=== PATIENT | male | born 1980 | race Caucasian/White ===

== ENCOUNTER 2022-10-30 08:24 | Outpatient (CLI) | payer BC, SELFPAY | END 2022-10-30 08:25 | disposition home or self-care (01) | PROVIDERS: PCP Family Medicine; Visit Provider Nurse Practitioner Family | DX: Z00.00 Encounter for general adult medical examination without abnormal findings (principal); E78.5 Hyperlipidemia, unspecified | CPT/HCPCS: 80053; 80061 ==

== ENCOUNTER 2023-09-04 14:19 | Outpatient (CLI) | payer BC, SELFPAY | END 2023-09-04 14:20 | disposition home or self-care (01) | LOC: LKVREF 14:20 | PROVIDERS: PCP Family Medicine; Visit Provider Family Medicine | DX: M79.672 Pain in left foot (principal) | CPT/HCPCS: 84550 ==

== ENCOUNTER 2024-05-10 10:50 | Outpatient (CLI) | payer BC, SELFPAY | END 2024-05-10 10:51 | disposition home or self-care (01) | PROVIDERS: PCP Family Medicine; Visit Provider Family Medicine | DX: Z01.818 Encounter for other preprocedural examination (principal) | CPT/HCPCS: 80048 ==

== ENCOUNTER 2024-05-17 07:32 | Day surgery (SDC) | payer BC, SELFPAY ==
[2024-05-17 07:42] VITALS: BMI 30.3
[2024-05-17 08:01] VITALS: BP 131/75; PULSE 51; RESP 18; TEMP 36.3; O2SAT 93
[2024-05-17] MEDS: SODIUM CHLORIDE 0.9 % (FLUSH) 10 ML SYRINGE IVF (08:01)
--- NOTE | 2024-05-17 08:09 | W.PM.H&PU ---
History & Physical Update History & Physical Update H&P Reviewed and patient assessed: No changes noted
--- NOTE | 2024-05-17 08:14 | P.GSOP_ITS ---
Operative Note Date of procedure: 05/17/24 Pre-op diagnosis: 1. Enlarging mid upper back mass. Post-op diagnosis: Same Type of Procedure: 1. Excision of mid upper back mass. Indications: 43-year-old male was seen in clinic with an enlarging upper back mass. This was initially noticed 2 years ago. This was thought to be a lipoma. However the mass has been increasing in size and patient noticed irritation of the mass. On clinical exam in the upper mid back slightly to the right of the midline spine there was a quarter-sized flat soft tissue mass that was soft to palpation but a mobile. This was firmly attached to the underlying tissues. On clinical exam it was suspicious to be lipoma. Given patient's clinical history, the enlarging nature of the mass, and its location, excision of this mass in the operating room was recommended. The procedure was discussed in detail. The risks associated procedure including infection, bleeding, and mass recurrence were all discussed with the patient, and he agreed to proceed. Procedure Description: After discussing the risks and benefits of the procedure, the patient signed informed consent.? The operative site was marked and the patient was brought to the operating room and placed on the operating table in the left lateral decubit us position.? Care was taken to pad the patient's pressure points.?? The patient was then sedated by anesthesia.?? The operative site was then prepped and draped in the usual sterile fashion.? A time-out was then performed. Local anesthetic was injected over the palpable mass. A vertical skin incision was made with a scalpel. Subcutaneous fat was divided with cautery down to the superficial fascia. The mass was palpated underneath the fascia. The fascia was then divided with cautery. Clotted blood vessels with thrombi were noted in this flattened mass. The rest of the mass had an appearance of lipoma except for multiple thrombosed blood vessels. The mass was circumferentially mobilized off the subcutaneous fat. It was overlying the fat and fascia over the transverse processes. It was tightly adherent to the underlying tissues and was shaved off with cautery. When the mass was free, it was sent to pathology. It was measured 3.5 x 3 cm. Hemostasis achieved with cautery. Subcutaneous fat and superficial fascia was reapproximated with interrupted 2-0 Vicryl sutures. The dermis was reapproximated with interrupted 3-0 Vicryl sutures. The skin was closed with a running 4-0 Monocryl stitch. Steri-Strips and sterile bulky pressure dressing were placed over the incision. All counts were correct at the end of the case. ? The patient was then woken and transported to the recovery area in stable condition. ? The patient tolerated the procedure well. Findings: Flat lipomatous appearing mass with thrombosed blood vessels. Anesthesia: MAC and local Surgeon: Yanet Watson MD Estimated blood loss (mL): 5 Additional Specimen Information: 1. Mid upper back mass. Condition: stable Disposition: same day
[2024-05-17] MEDS: 0.9 % SODIUM CHLORIDE 500 ML 500 ML 100 ML IV (08:24)
[2024-05-17] MEDS: CEFAZOLIN 2 GM INJ IVP (08:35)
[2024-05-17] MEDS: LIDOCAINE 1%-EPI 1:100,000 10 ML INFILTRATI (08:38)
[2024-05-17] MEDS: BUPIVACAINE 0.25% 30 ML 10 ML INJECTION (08:38)
[2024-05-17 09:38] VITALS: BP 91/65; PULSE 54; RESP 16; TEMP 36.1; O2SAT 93
--- NOTE | 2024-05-17 09:40 | W.ANESCHARGE ---
Anesthesia Charges Start Date/Time Anesthesia Start Date: 05/17/24 Anesthesia Start Time: 08:24 Stop Date/Time Anesthesia Stop Date: 05/17/24 Anesthesia Stop Time: 09:36
[2024-05-17 09:45] VITALS: BP 108/71; PULSE 64; RESP 16; O2SAT 93
[2024-05-17 10:00] VITALS: BP 118/79; PULSE 62; RESP 16; O2SAT 93
[2024-05-17 10:15] VITALS: BP 117/86; PULSE 50; RESP 16; O2SAT 93
--- NOTE | 2024-05-17 10:42 | SUR.OPER ---
PATIENT QUESTIONS ANSWERED SATISFACTORILY PREOPERATIVELY. PATIENT BROUGHT TO OR #1 PER CART. Patient positioned supine on OR #1 bed. The perioperative team supported arms bilaterally on arm boards. Final approval of positioning by surgeon.
== END 2024-05-17 10:45 | disposition home or self-care (01) ==
PROVIDERS: PCP Family Medicine; Visit Provider Surgery
PROC: (CPT 21931; principal; 2024-05-17 09:00)
DX: D18.01 Hemangioma of skin and subcutaneous tissue (principal)
CPT/HCPCS: 21931; 00300; 88307; J0665; J0690; J1100; J1885; J2250; J2405; J2704; J3010; J7030

== ENCOUNTER 2024-10-17 10:32 | Outpatient (CLI) | payer BC, SELFPAY | END 2024-10-17 10:33 | disposition home or self-care (01) | LOC: LKVREF 10:33 | PROVIDERS: PCP Family Medicine; Visit Provider Family Medicine | DX: E78.5 Hyperlipidemia, unspecified (principal) | CPT/HCPCS: 80061 ==